=== PATIENT | female | born 2005 | race Caucasian/White ===

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

== ENCOUNTER 2024-01-17 11:24 | Outpatient (CLI) | payer OTHER | END 2024-01-17 11:25 | disposition home or self-care (01) | LOC: CSHMRI 11:24 → EDSTATUS 11:30 | PROVIDERS: ATTEND Emergency Medicine Sports Medicine | DX: M25.551 Pain in right hip (principal); S73.191A Other sprain of right hip, initial encounter ==